=== PATIENT | female | born 1965 | race Caucasian/White ===

== ENCOUNTER 2017-06-10 15:55 | Emergency (ER) | payer OTHER ==
[2017-06-10] MEDS ORDERED: Ibuprofen TAB* 600 MG PO ONE (18:18)
[2017-06-10 19:20] VITALS: BP 120/65
--- NOTE | 2017-06-10 22:10 | ED ---
Jorge Spencer Thomas, scribed for Valdez Parada MD on 06/10/17 at 1657 . 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 When she was walking throughout the house, she noticed the smell of gas. She continued to measure after smelling the gas. She estimates being inside the house about 60 minutes. In the emergency department, she complains of mental fogginess, lightheadedness, mild nausea, and I just don t feel myself. Her symptoms are mostly resolved by now but she is not yet back to her baseline. She is on Plaquenil. - History Of Current Complaint Chief Complaint: EDDizziness Stated Complaint: GAS FUMES EXPOSURE/DIZZY Time Seen by Provider: 06/10/17 16:31 Hx Obtained From: Patient Onset/Duration: Still Present Severity Initially: Moderate Severity Currently: Mild Aggravating Factor(s): Nothing Alleviating Factor(s): Nothing Associated Signs And Symptoms: Positive: Other: - Mental foggines, lightheadedness, nausea - Allergies/Home Medications Allergies/Adverse Reactions: Allergies Allergy/AdvReac Type Severity Reaction Status Date / Time sulfamethoxazole Allergy Rash Verified 06/10/17 16:32 [From Bactrim] trimethoprim [From Bactrim] Allergy Rash Verified 06/10/17 16:32 Home Medications: Home Medications Hydroxychloroquine TAB* [Plaquenil TAB*] 400 mg PO DAILY 06/10/17 [History Confirmed 06/10/17] PMH/Surg Hx/FS Hx/Imm Hx Endocrine/Hematology History: Denies: Hx Anticoagulant Therapy, Hx Diabetes Cardiovascular History: Denies: Hx Hypertension, Hx Pacemaker/ICD History: Reports: Hx Kidney Stones Denies: Hx Renal Disease Sensory History: Denies: Hx Hearing Aid Psychiatric History: Denies: Hx Panic Disorder - Surgical History Surgery Procedure, Year, and Place: [facility] SURGERY 2002 AND 2X 2011. C SECTION 2002. right wrist 1994 [facility] TENDON[facility]IS AND left wrist 1999 Infectious Disease History: No Infectious Disease History: Denies: Traveled Outside the [place] in Last 30 Days - Family History Known Family History: Positive: Other - Patient denied relevant FHx - Social History Alcohol Use: Occasionally Substance Use Type: Reports: None Smoking Status (MU): Never Smoked Tobacco Review of Systems Positive: Other - Lightheadedness. Negative: Fever Positive: Nausea Neurological: Other - Mental fogginess All Other Systems Reviewed And Are Negative: Yes Physical Exam - Summary Physical Exam Summary: Appearance: The patient is well-nourished in no acute distress and in no acute pain. Skin: The skin is warm and dry and skin color reflects adequate perfusion. HEENT: The head is normocephalic and atraumatic. The pupils are equal and reactive. The conjunctivae are clear and without drainage. Nares are patent and without drainage. Mouth reveals moist mucous membranes and the throat is without erythema and exudate. The external ears are intact. The ear canals are patent and without drainage. The tympanic membranes are intact. Neck: the neck is supple with full range of motion and non-tender. There are no carotid bruits. There is no neck vein distension. Respiratory: Chest is non-tender. Lungs are clear to auscultation and breath sounds are symmetrical and equal. Cardiovascular: Heart is regular rate and rhythm. There is no murmur or rub auscultated. There is no peripheral edema and pulses are symmetrical and equal. Abdomen: The abdomen is soft and non-tender. There are normal bowel sounds heard in all four quadrants and there is no organomegaly palpated. Musculoskeletal: There is no back tenderness noted. Extremities are non-tender with full range of motion. There is good capillary refill. There is no peripheral edema or calf tenderness elicited. Neurological: Patient is alert and oriented to person, place and time. The patient has symmetrical motor strength in all four extremities. Cranial nerves are grossly intact. Deep tendon reflexes are symmetrical and equal in all four extremities. Psychiatric: The patient has an appropriate affect and does not exhibit any anxiety or depression. Triage Information Reviewed: Yes Vital Signs On Initial Exam: Initial Vitals Temp Pulse Resp BP Pulse Ox 97.7 F 66 18 150/66 100 06/10/17 16:01 06/10/17 16:01 06/10/17 16:01 06/10/17 16:01 06/10/17 16:01 Vital Signs Reviewed: Yes Diagnostics - Vital Signs Vital Signs Temp Pulse Resp BP Pulse Ox 06/10/17 16:01 97.7 F 66 18 150/66 100 - Laboratory Lab Results: Lab Results 06/10/17 Range/Units 17:36 Carbon Monoxide Screen < 4 (<4.0) % Lab Statement: Any lab studies that have been ordered have been reviewed, and results considered in the medical decision making process. Dizzy Course/Dx - Course Course Of Treatment: Ms. Sp Singh may have been exposed to natural gas fumes today and comes in with nausea and a NARVAEZ. Her carboxyhemaglobin was NL and she improved a bit here out of the environment. - Diagnoses Provider Diagnoses: Exposure to toxic substance Discharge - Sign-Out/Discharge Documenting (check all that apply): Discharge/Admit/Transfer - Discharge Plan Condition: Stable Disposition: HOME Referrals: Parris Navarro MD [Primary Care Provider] - If Needed Additional Instructions: Follow up with Dr. Navarro if your symptoms are not improved by tomorrow. Return to the emergency department for new or worsening symptoms. - Billing Disposition and Condition Condition: STABLE Disposition: HOME The documentation as recorded by the Jorge rodriguez Thomas accurately reflects the service I personally performed and the decisions made by me, Valdez Parada MD.
== END 2017-06-10 19:18 | disposition home or self-care (01) ==
LOC: ED 15:55
DX: Z57.5 Occupational exposure to toxic agents in other industries (principal); R42 Dizziness and giddiness; R11.10 Vomiting, unspecified
CPT/HCPCS: 36415; 82375; 99282; A9270-GY